=== PATIENT | male | born 1985 | race Caucasian/White ===

== ENCOUNTER 2023-01-16 08:25 | Outpatient (REF) | payer BC, SELFPAY ==
[2023-01-16 11:38] LABS: Appearance Urine Clear; Color Urine Yellow; Glucose Urine UA Negative (Negative); Leukocyte Esterase Urine Negative (Negative); Nitrite Urine Negative (Negative); Specific Gravity - Urine 1.025 (1.005-1.025); UMIC TRIGGER UA YES; Urine Blood Moderate (2+) (Negative); Urine Ketones Trace mg/dL (Negative); Urine Protein Negative (Neg-Trace)
[2023-01-16 11:38] LABS: MANUAL DIFF FLAG NO
[2023-01-16 11:44] LABS: Bacteria Urine None Seen (None Seen); Hyaline Casts Urine 0-2 /LPF (0-2); RBC Urine >20 /HPF (0-2); Squamous Epithelial Cell Urine 0-2 /HPF (0-2); WBC Urine 0-5 /HPF (0-5)
[2023-01-16 11:54] LABS: Basophils Absolute Auto 0.1 X10*3/uL (0.0-0.2); Basophils Percent Auto 1.7 % (0-2); Eosinophils Absolute Auto 0.3 X10*3/uL (0.0-0.4); Hemoglobin 14.8 g/dl (14.0-18.0); Imm Gran Abs Auto 0.01 X10*3/uL (0.00-0.03); Imm Gran Pct Auto 0.2 % (0.0-0.4); Lymphocytes Absolute Auto 1.3 X10*3/uL (1.2-4.9); Lymphocytes Percent Auto 23.3 % (20-40); Mean Corpuscular HGB Conc 33.6 g/dl (31.0-36.0); Mean Corpuscular Hemoglobin 30.3 pg (27.0-33.0); Mean Corpuscular Volume 90.2 fL (80.0-98.0); Mean Platelet Volume 10.9 fL (9.4-12.4); Monocytes Absolute Auto 0.5 X10*3/uL (0.1-1.2); Monocytes Percent Auto 9.2 % (2-11); Neutrophils Absolute Auto 3.3 x10*3/uL (2.0-8.3); Neutrophils Percent Auto 60.6 % (45-73); Platelet Count 253 X10*3/uL (160-400); Red Blood Count 4.88 X10*6/uL (4.60-5.80); Red Cell Distribution Width 13.2 % (11.0-16.0); White Blood Count 5.4 X10*3/uL (4.8-10.8)
[2023-01-16 12:35] LABS: Alanine Aminotransferase 15 U/L (0-40); Albumin Level 4.1 g/dL (3.5-5.0); Alkaline Phosphatase 61 U/L (39-117); Anion Gap 8 (12-20); Aspartate Amino Transferase 17 U/L (5-37); Bilirubin Total 0.2 mg/dL (0.0-1.0); Blood Urea Nitrogen 16 mg/dL (9-16); Calcium 8.8 mg/dL (8.4-10.2); Carbon Dioxide 30 mmol/L (22-29); Chloride 107 mmol/L (96-108); Cholesterol 162 mg/dL; Estimated Glomerular Filt Rate > 60; Glucose Fasting 100 mg/dL (60-99); HDL Cholesterol 42 mg/dL; LDL Cholesterol Calculated 104 mg/dl; Potassium 4.3 mmol/L (3.3-5.1); Sodium 141 mmol/L (135-145); Thyroid Stimulating Hormone 6.62 uIU/mL (0.32-4.0); Total Protein 6.4 g/dL (6.5-8.0); Triglycerides 83 mg/dL
[2023-01-16 12:39] LABS: Creatinine Urine 244.99 mg/dL; Microalbum/Creatinine Ratio Ur 4.8 ug/mg cr
[2023-01-19 02:14] LABS: Triiodothyronine T3 Total 102 ng/dL (76-181)
== END 2023-01-16 08:26 | disposition home or self-care (01) ==
LOC: HO.HMGCLDS 08:25
PROVIDERS: PCP Family Medicine; Visit Provider Family Medicine
DX: Z00.00 Encounter for general adult medical examination without abnormal findings (principal); E03.9 Hypothyroidism, unspecified; I10 Essential (primary) hypertension
CPT/HCPCS: 36415; 80053; 80061; 81001; 82043; 84439; 84443; 84480; 85025

== ENCOUNTER 2023-07-08 08:40 | Outpatient (REF) | payer BC, SELFPAY ==
[2023-07-09 20:34] LABS: Triiodothyronine T3 Total 109 ng/dL (76-181)
== END 2023-07-08 08:41 | disposition home or self-care (01) ==
LOC: HO.HMGCLDS 08:40
PROVIDERS: PCP Family Medicine; Visit Provider Family Medicine
DX: R73.01 Impaired fasting glucose (principal); E03.9 Hypothyroidism, unspecified
CPT/HCPCS: 36415; 80048; 81001; 84439; 84443; 84480

== ENCOUNTER 2023-07-24 14:26 | Outpatient (AMB) | payer BC, SELFPAY ==
--- NOTE | 2023-07-24 14:32 | A.OFFPC_ITS ---
Vital Signs 07/24/23 14:33 Height 5 ft 11 in Weight 173 lb 2 oz BMI 24.1 BP 140/92 H Blood Pressure Location Lt brachial Position Sitting Pulse 83 Pulse Source Pulse Oximeter Pulse Oximetry (%) 98 Oxygen Delivery Method Room Air Intake Visit Reasons: F/u f/u hypothyroidism Intake Note: Patient is following up on hypothyroid today. Allergies No Known Allergies [No Known Allergies*] Allergy (Verified 07/24/23 14:35) Tobacco use date assessed: 07/24/23 Dental Screening Dental Screen Date: 07/24/23 Did you have a dental visit in the last 12 months?: No Did you have a dental problem in the last 6 months where you did not have access to dental care?: No Was dental information given to patient?: Patient declined HPI F/u f/u hypothyroidism HPI Details 37 y/o male presents to f/u hypothyroidi . Labs were drawn 07/08/23. Reviewed labs with pt. TSH level 2.84. Free %4 0.94. Total T3 109. Hematuria. Elevated BP reading at 140/92. 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 Devante Timmons, Clarisa Perez, Yousif Mccurdy and colleagues, with an educational adolfo from [employer]. Review of Systems Const Denies chills, Denies fatigue, Denies fever(s), Denies headache(s) and Denies weakness ENT Denies dizziness and Denies headache(s) Card Denies dyspnea Resp Denies cough, Denies dyspnea, Denies wheezing and Denies other (shortness of breath) Musc Denies numbness and Denies tingling Neuro Denies dizziness, Denies headache(s), Denies numbness, Denies tingling and Denies weakness Psych Denies anxiety and Denies depression Endo Denies fatigue Aller/Immun Denies wheezing Physical exam (Primary Care) Vital Signs: Last Vital Signs Pulse 83 07/24/23 14:33 BP 140/92 H 07/24/23 14:33 Pulse Ox 98 07/24/23 14:33 Oxygen Delivery Method Room Air 07/24/23 14:33 BMI result Body Mass Index 24.1 Tobacco/Smoking Status: Tobacco use Status Tobacco use date assessed 07/24/23 07/24/23 14:42 Patient Tobacco Use Status Never used Tobacco 07/24/23 14:42 e-Cigarette/Vaping Use Never Used 07/24/23 14:42 Thrive Assessment: Date of Thrive Assessment Date Thrive assessed 09/02/22 07/24/23 14:42 Const General: well developed; No acute distress Nutritional Appearance: well nourished Orientation/consciousness: patient oriented x3 HENMT Head: Yes normocephalic and Yes atraumatic Eyes General: appearance normal, both eyes and all related structures Pupils: Equal, round and reactive pupils present EOM: EOMs intact bilaterally Resp Effort & Inspection: normal respiratory effort Neuro General: patient oriented x3 and gait normal Cranial nerves: Yes Equal, round and reactive pupils present Psych Affect: normal affect Assessment and Plan Assessment & Plan (1) Hypothyroid: Code(s): E03.9 - Hypothyroidism, unspecified Qualifiers: Hypothyroidism type: unspecified Qualified Code(s): E03.9 - Hypothyroidism, unspecified Plan: Thyroid?hormone?levels?are?all?within?normal?limit Continue?levothyroxine?125?mcg?daily (2) Elevated blood pressure reading: Code(s): R03.0 - Elevated blood-pressure reading, without diagnosis of hypertension Plan: Elevated?blood?pressure?reading?today.??Patient ?notes?that?he?is?somewhat?stressed Prior?readings?have?been?within?normal?limits We?can?recheck?this?at?his?next?visit?in?a?month (3) Elevated fasting glucose: Code(s): R73.01 - Impaired fasting glucose Plan: Prior?elevated?fasting?blood?sugar?and?patient?was?not?sure?he?had?had?a?proper? fast Blood?sugar?is?within?normal?limits?at?most?recent?check (4) Hematuria: Code(s): R31.9 - Hematuria, unspecified Plan: Hematuria?seen?on?past?2?urinalysis?tests Will?check?an?ultrasound?and?repeat?urinalysis?with?microscopy.??Will?check?cyto logy May?need?referral?to?Nephrology?or?Urology Orders: Orders UA w Microscopic Today R31.9 - Hematuria, unspecified Urine Cytology Today R31.9 - Hematuria, unspecified US renal BI Today R31.9 - Hematuria, unspecified Coding Level of Care Code Est Pt Level 4 (93609) Diagnoses Hypothyroidism, unspecified type E03.9 Hypothyroidism type: unspecified Elevated blood pressure reading R03.0 Elevated fasting glucose R73.01 Hematuria R31.9
[2023-07-24 14:33] VITALS: BP 140/92; PULSE 83; O2SAT 98; BMI 24.1
== END 2023-07-24 16:19 | disposition home or self-care (01) ==
PROVIDERS: PCP Family Medicine; Visit Provider Family Medicine
DX: E03.9 Hypothyroidism, unspecified (principal); R03.0 Elevated blood-pressure reading, without diagnosis of hypertension; R73.01 Impaired fasting glucose; R31.9 Hematuria, unspecified
CPT/HCPCS: 99214

== ENCOUNTER 2025-01-27 10:50 | Outpatient (AMB) | payer BC, SELFPAY ==
--- NOTE | 2025-01-27 11:02 | A.OFFPC_ITS ---
Vital Signs 01/27/25 11:04 Height 5 ft 11 in Weight 170 lb 2 oz BMI 23.7 BP 120/70 Blood Pressure Location Rt brachial Position Sitting Respiration 14 Pulse 53 Pulse Source Pulse Oximeter Temp 98.2 F Temp Source Oral Pulse Oximetry (%) 98 Oxygen Delivery Method Room Air Intake Visit Reasons: prescription Intake Note: patient is here for a follow up visit for levothyroxine Library Aide Required: No Allergies No Known Allergies [No Known Allergies*] Allergy (Verified 01/27/25 11:03) Tobacco use date assessed: 07/24/23 Dental Screening Dental Screen Date: 07/24/23 HPI prescription HPI Details 39 y/[facility]. He is on levothyroxine 125 mcg. 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 1. Little interest or pleasure in doing things: not at all 2. Feeling down, depressed, or hopeless: not at all 3. Trouble falling or staying asleep, or sleeping too much: not at all 4. Feeling tired or having little energy: not at all 5. Poor appetite or overeating: not at all 6. Feeling bad about yourself - or that you are a failure or have let yourself or your family down: not at all 7. Trouble concentrating on things, such as reading the newspaper or watching television: not at all 8. Moving or speaking so slowly that other people could have noticed. Or the opposite - being so fidgety or restless that you have been moving around a lot more than usual: not at all 9. Thoughts that you would be better off or of hurting yourself in some way: not at all Total score: 0 Depression Screening Interpretation: Negative Depression Screening Done: Yes 32234 - PHQ-9 Billing: Yes Source: Developed by Drs. Devante Timmons, Yousif Smith and colleagues, with an educational adolfo from [employer]. Thrive Questionnaire Date Thrive assessed: 09/02/22 I am a: Patient What is your living situation today?: I have a steady place to live Within the past 12 months, did the food you bought not last and you didn't have the money to get more?: Never true Within the past 12 months, did you worry whether your food would run out before you got money to buy more?: Never true Do you have trouble paying for medicines?: No Do you have trouble getting transportation to medical appointments?: No Do you have trouble paying your heating and electricity bill?: No Do you have trouble taking care of your child, family member or friend?: No Do you have trouble with day-to-day activities such as bathing, preparing meals, shopping, managing finances, etc.?: No Are you currently unemployed and looking for a job?: No Are you interested in more education?: No Please select the resources that you would like help with: None Currently or been in a relationship where the following occur: No concerns reported THRIVE Score: 0 AUDIT C Alcohol Use Questionnaire (AUDIT-C) 1. How often do you have a drink containing alcohol?: Never Total Score: 0 SHAINA-7 AMB Questionnaire SHAINA-7 Date SHAINA - 7 assessed: 01/27/25 Feeling nervous, anxious, or on edge: 0 = Not at all Not being able to stop or control worryin = Not at all Worrying too much about different things: 0 = Not at all Trouble relaxin = Not at all Being so restless that it is hard to sit still: 0 = Not at all Becoming easily annoyed or irritable: 0 = Not at all Feeling afraid as if something awful might happen: 0 = Not at all Total SHAINA-7 score (0-4 normal; 5-9 mild; 10-14 moderate; 15-21 severe): 0 Source: Developed by Drs. Devante Timmons, Yousif Smith and colleagues, with an educational adolfo from [employer]. SHAINA-7 Assessment Billing SHAINA-7 Assessment Tool: SHAINA-7 Assessment 70349 Review of Systems Const Denies chills, Denies fatigue, Denies fever(s), Denies headache(s) and Denies weakness ENT Denies dizziness and Denies headache(s) Card Denies chest pain, Denies lightheadedness, Denies dyspnea and Denies other (Palpitations) Resp Denies cough, Denies dyspnea, Denies wheezing and Denies other ( shortness of breath) Musc Denies numbness and Denies tingling Neuro Denies dizziness, Denies headache(s), Denies numbness, Denies tingling, Denies paresthesias and Denies weakness Psych Denies anxiety and Denies depression Endo Denies fatigue Aller/Immun Denies wheezing Physical exam (Primary Care) Vital Signs: Last Vital Signs Temp 98.2 F 01/27/25 11:04 Pulse 53 01/27/25 11:04 Resp 14 01/27/25 11:04 BP 120/70 01/27/25 11:04 Pulse Ox 98 01/27/25 11:04 Oxygen Delivery Method Room Air 01/27/25 11:04 BMI result Body Mass Index 23.7 Tobacco/Smoking Status: Tobacco use Status Tobacco use date assessed 07/24/23 01/27/25 11:06 Patient Tobacco Use Status Never used Tobacco 01/27/25 11:06 e-Cigarette/Vaping Use Never Used 01/27/25 11:06 PHQ-9: PHQ-9 Score PHQ-9: Total score 0 01/27/25 11:06 Depression Screening Interpretation: Negative Thrive Assessment: Date of Thrive Assessment Date Thrive assessed 09/02/22 01/27/25 11:06 Currently or been in a relationship where the following occur: No concerns reported Const General: no acute distress and well developed Nutritional Appearance: well nourished Orientation/consciousness: patient oriented x3 [facility] Head: Yes normocephalic and Yes atraumatic Eyes General: appearance normal, both eyes and all related structures Pupils: Equal, round and reactive pupils present EOM: EOMs intact bilaterally Resp Effort & Inspection: normal respiratory effort Auscultation: clear to auscultation bilaterally Cardio Rate: regular rate Rhythm: regular rhythm Heart sounds: S1 normal heart sound present, S2 normal heart sound present, no gallops, no murmurs and no rubs Neuro General: patient oriented x3 and gait normal Cranial nerves: Yes Equal, round and reactive pupils present Psych Affect: normal affect Coding Level of Care Code Est Pt Level 3 (36927) Diagnoses Hypothyroidism, unspecified type E03.9 Hypothyroidism type: unspecified Additional Codes SHAINA-7 Assessment Billing - SHAINA-7 Assessment Tool: SHAINA-7 Assessment 59565 ([id number]) PHQ-9 - 35645 - PHQ-9 Billing: Yes ([id number]) Assessment & Plan Assessment & Plan (1) Hypothyroid: Code(s): E03.9 - Hypothyroidism, unspecified Category: Medical Qualifiers: Hypothyroidism type: unspecified Qualified Code(s): E03.9 - Hypothyroidism, unspecified Plan: Patient?has?been?taking?his?medications?as?prescribed. Has?not?had?recent?follow- up.??He?will?get?his?labs?drawn?to?check?thyroid?hormone?levels. Will?call?radiation?if?adjustment?is?needed. Orders: Orders Free T4 (Free Thyroxine) Today E03.9 - Hypothyroidism, unspecified Comprehensive Met. Panel Today E03.9 - Hypothyroidism, unspecified Triiodothyronine T3 Total Today E03.9 - Hypothyroidism, unspecified TSH reflex Free T4 Today E03.9 - Hypothyroidism, unspecified, Z00.00 - Encounter for general adult medical examination without abnormal findings
[2025-01-27 11:04] VITALS: BP 120/70; PULSE 53; RESP 14; TEMP 36.8; O2SAT 98; BMI 23.7
== END 2025-01-27 11:22 | disposition home or self-care (01) ==
LOC: HO.HMCFM 10:50
PROVIDERS: PCP Family Medicine; Visit Provider Family Medicine
DX: E03.9 Hypothyroidism, unspecified (principal)

== ENCOUNTER → 2025-01-27 10:50 | Outpatient (BNVA) | payer BC, SELFPAY | PROVIDERS: PCP Family Medicine; Visit Provider Family Medicine | DX: E03.9 Hypothyroidism, unspecified (principal); Z79.899 Other long term (current) drug therapy | CPT/HCPCS: 96127 ==

== ENCOUNTER 2025-01-27 11:55 | Outpatient (REF) | payer BC, SELFPAY ==
[2025-01-27 14:56] LABS: Alanine Aminotransferase 14 U/L (0-40); Albumin Level 4.3 g/dL (3.5-5.0); Alkaline Phosphatase 64 U/L (39-117); Anion Gap 12 (12-20); Aspartate Amino Transferase 26 U/L (5-37); Bilirubin Total 0.6 mg/dL (0.0-1.0); Blood Urea Nitrogen 14 mg/dL (9-16); Calcium 9.3 mg/dL (8.4-10.2); Carbon Dioxide 29 mmol/L (22-29); Chloride 106 mmol/L (96-108); Estimated Glomerular Filt Rate > 60; Glucose Random 95 mg/dL (60-115); Potassium 4.7 mmol/L (3.3-5.1); Sodium 142 mmol/L (135-145)
[2025-01-27 15:03] LABS: Free T4 (Free Thyroxine) 1.05 ng/dL (0.71-1.85); TSH reflex Free T4 4.65 uIU/mL (0.32-4.0)
[2025-01-28 05:44] LABS: Triiodothyronine T3 Total 83 ng/dL (76-181)
== END 2025-01-27 11:56 | disposition home or self-care (01) ==
LOC: HO.WFDLDS 11:55
PROVIDERS: Visit Provider Family Medicine
DX: Z00.00 Encounter for general adult medical examination without abnormal findings (principal); E03.9 Hypothyroidism, unspecified
CPT/HCPCS: 36415; 80053; 84439; 84443; 84480

== ENCOUNTER 2025-08-04 08:26 | Outpatient (AMB) | payer BC, SELFPAY ==
--- NOTE | 2025-08-04 08:28 | A.OFFPC_ITS ---
Vital Signs 08/04/25 08:35 Height 5 ft 11 in Weight 171 lb 6 oz BMI 23.9 BP 128/78 Blood Pressure Location Rt brachial Position Sitting Respiration 16 Pulse 58 Pulse Source Pulse Oximeter Temp 98.2 F Temp Source Oral Pulse Oximetry (%) 99 Oxygen Delivery Method Room Air Intake Visit Reasons: f/u hypothyroid Intake Note: CPE, F/U hypothyroidism and lower left back pain. pt has iced and has taken OTC meds to help with back pain. [employer] Required: No Allergies No Known Allergies (No Known Allergies*) Allergy (Verified 08/04/25 08:35) Medication List - Last Reconciled 08/04/25 by Mode Gunderson MD fexofenadine (Jil Allergy) 60 mg PO ONCE levothyroxine 125 mcg PO DAILY Tobacco use date assessed: 07/24/23 Dental Screening Dental Screen Date: 07/24/23 HPI f/u hypothyroid HPI Details Patient presents for CPE and has complaint of left lower back pain. Patient has strained his back last Thursday. He has been using ice and some ibuprofen. Reviewed labs: TSH was slightly elevated though T4 and T3 were within normal range. He is taking levothyroxine as prescribed. Otherwise patient feels well. No other complaints. 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 Current occupational exposures/hazards: No Cognitive needs: No Hearing needs: No Vision needs: Yes (Patient wears prescription glasses.) Questionnaire Thrive Questionnaire Date Thrive assessed: 01/27/25 I am a: Patient What is your living situation today?: I have a steady place to live Within the past 12 months, did the food you bought not last and you didn't have the money to get more?: Never true Within the past 12 months, did you worry whether your food would run out before you got money to buy more?: Never true Do you have trouble paying for medicines?: No Do you have trouble getting transportation to medical appointments?: No Do you have trouble paying your heating and electricity bill?: No Do you have trouble taking care of your child, family member or friend?: No Do you have trouble with day-to-day activities such as bathing, preparing meals, shopping, managing finances, etc.?: No Are you currently unemployed and looking for a job?: No Are you interested in more education?: No Please select the resources that you would like help with: None Currently or been in a relationship where the following occur: No concerns reported THRIVE Score: 0 AUDIT C Alcohol Use Questionnaire (AUDIT-C) 3. How often do you have six or more drinks on one occasion?: Never Total Score: 0 SHAINA-7 AMB Questionnaire SHAINA-7 Date SHAINA - 7 assessed: 01/27/25 Source: Developed by Drs. Devante Timmons, Clarisa Perez, Yousif Mccurdy and colleagues, with an educational adolfo from [employer]. Review of Systems Const Denies chills, Denies fatigue, Denies fever(s), Denies headache(s) and Denies weakness Eyes Denies change in vision ENT Denies dizziness, Denies headache(s), Denies hearing loss, Denies nasal congestion, Denies sinus pain, Denies sinus pressure and Denies sore throat Card Denies chest pain, Denies lightheadedness, Denies dyspnea and Denies other (palpitations) Resp Denies cough, Denies dyspnea and Denies wheezing GI Denies abdominal pain, Denies melena, Denies hematochezia, Denies change in bowel habits, Denies dyspepsia and Denies nausea Denies hematuria and Denies dysuria Musc Details: Left low back pain since last Thursday Denies abnormal gait, Denies myalgias, Denies arthralgias, Denies numbness and Denies tingling Skin/Breast Denies rash, Denies unusual bruising and Denies wounds Neuro Denies abnormal gait, Denies dizziness, Denies headache(s), Denies memory loss, Denies numbness, Denies Sensory deficit (Neuro), Denies tingling and Denies weakness Psych Denies anxiety, Denies depression and Denies memory loss Endo Denies cold intolerance, Denies fatigue, Denies heat intolerance, Denies polydipsia and Denies polyuria Mohinder/Lymph Denies easy bleeding and Denies easy bruising Aller/Immun Denies wheezing Physical exam (Primary Care) Vital Signs: Last Vital Signs Temp 98.2 F 08/04/25 08:35 Pulse 58 08/04/25 08:35 Resp 16 08/04/25 08:35 BP 128/78 08/04/25 08:35 Pulse Ox 99 08/04/25 08:35 Oxygen Delivery Method Room Air 08/04/25 08:35 BMI result Body Mass Index 23.9 Tobacco/Smoking Status: Tobacco use Status Tobacco use date assessed 07/24/23 08/04/25 08:29 Patient Tobacco Use Status Never used Tobacco 08/04/25 08:29 e-Cigarette/Vaping Use Never Used 08/04/25 08:29 Thrive Assessment: Date of Thrive Assessment Date Thrive assessed 01/27/25 08/04/25 08:29 Currently or been in a relationship where the following occur: No concerns reported Const General: no acute distress, well developed, alert and awake Nutritional Appearance: well nourished Orientation/consciousness: patient oriented x3 HENMT Head: Yes normocephalic and Yes atraumatic Ears: hearing grossly normal bilaterally and TM's normal bilaterally General nose exam: Normal external nose present and Normal nares present Mouth: Normal oral and palatal mucosa present and moist mucous membranes Teeth and gingiva: dentition normal Throat: Yes posterior oropharynx normal Eyes Pupils: Equal, round and reactive pupils present and Pupil accommodation reflex normal EOM: EOMs intact bilaterally Neck Neck: Yes normal visual inspection, Yes no lymphadenopathy and Yes trachea midline Thyroid: Thyroid normal Carotids: no bruits Lymphatic: no lymphadenopathy noted Chest Chest palpation & inspection: normal inspection of the chest Resp Effort & Inspection: normal respiratory effort Auscultation: clear to auscultation bilaterally Cardio Rate: regular rate Rhythm: regular rhythm Heart sounds: S1 normal heart sound present, S2 normal heart sound present, no gallops, no murmurs and no rubs Bruits: no abdominal aortic bruits and no carotid bruits GI Palpation (GI): No Abdominal aortic bruit present, Soft to palpation, nontender, No hepatosplenomegaly present and No Rebound tenderness present Auscultation: normal bowel sounds General: Yes no CVA tenderness (Tenderness at Left lower back paraspinous muscles and left buttock) Back/Spine/Pelvis Back: no CVA tenderness (Tenderness at Left lower back paraspinous muscles and left buttock) Cervical Spine: cervical ROM normal and No Cervical spine tenderness Thoracic/Lumbar Spine: thoraco-lumbar ROM normal, No pain with thoraco-lumbar ROM, No thoracic spinal tenderness and No lumbar spinal tenderness Skin Lesions: no lesions Rashes: no rashes Trauma: no lacerations or abrasions Wounds: no wounds Nails: normal Neuro General: patient oriented x3, gait normal and CN's II-XI intact bilaterally Cranial nerves: Yes Equal, round and reactive pupils present Cognition (Neuro): normal cognition Gait exam (Neuro): Normal gait present Motor exam (neuro): 5/5 motor strength present throughout Sensory Exam: No Sensory deficit (Neuro) Deep tendon reflexes (DTR's): Right patellar reflex intensity grade: 2+ and Left patellar reflex intensity grade: 2+ Extrem General: Yes normal to inspection and No edema Psych Appearance: grossly normal Affect: normal affect Attitude: cooperative Thought process: Normal thought process present Coding Level of Care Code Est Pt Level 3 (42599) Est Pt Prev Care 18-39y(31654) Diagnoses Adult general medical exam Z00.00 Low back pain M54.50 Hypothyroidism, unspecified type E03.9 Hypothyroidism type: unspecified Assessment & Plan Assessment & Plan (1) Adult general medical exam: Code(s): Z00.00 - Encounter for general adult medical examination without abnormal findings Category: Medical Plan: 39-year-old male presents for complete physical exam Encouraged healthy diet with active lifestyle and plenty of exercise (2) Low back pain: Code(s): M54.50 - Low back pain, unspecified Category: Medical Plan: Left low back muscle strain Will send a script for meloxicam and also cyclobenzaprine. Relative rest; he has been out since Thursday and I will keep him out today as well. He can go back to work on Thursday if he is feeling. Can use ice or heat He has a physical therapist that will help him with exercises Call or return to office if worsening or not improving (3) Hypothyroid: Code(s): E03.9 - Hypothyroidism, unspecified Category: Medical Qualifiers: Hypothyroidism type: unspecified Qualified Code(s): E03.9 - Hypothyroidism, unspecified Plan: Patient taking levothyroxine as prescribed Had mildly elevated TSH Repeating this and we will follow-up at his next visit. If TSH is still elevated, will adjust his medication. Orders: Orders Thyroid Stimulating Hormone Today E03.9 - Hypothyroidism, unspecified Triiodothyronine T3 Total Today E03.9 - Hypothyroidism, unspecified Basic Metabolic Panel Today E03.9 - Hypothyroidism, unspecified, Z00.00 - Encounter for general adult medical examination without abnormal findings Free T4 (Free Thyroxine) Today E03.9 - Hypothyroidism, unspecified Medications: New meloxicam 15 mg PO DAILY 30 tabs 2RF 30 days cyclobenzaprine 10 mg PO BID PRN 20 tabs 0RF muscle spasm 10 days Changed From levothyroxine 125 mcg PO DAILY 30 tabs 0RF To levothyroxine 125 mcg PO DAILY 90 tabs 2RF 90 days
[2025-08-04 08:35] VITALS: BP 128/78; PULSE 58; RESP 16; TEMP 36.8; O2SAT 99; BMI 23.9
--- OUTSIDE RECORDS SUMMARY | 2025-08-04 08:56 | XMS_ITS | Clinical Summary ---
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 Not on marleny e 01/23/2023 Are you concerned about learning? Not on file 01/23/2023 No 01/23/2023 No 01/23/2023 Digital Access Answer Date Recorded No 02/22/2023 No 02/22/2023 Reliable internet access at home? Not on file 02/22/2023 Device with a working camera? Not on file Sex and Gender Information Value Date Recorded Sex Assigned at Not on file Legal Sex Male 4:15 PM EST Gender Identity Not on file Sexual Orientation Not on file Last Filed Vital Signs Vital Sign Reading Time Taken Comments Blood Pressure - - Pulse - - Temperature - - Respiratory Rate - - Oxygen Saturation - - Inhaled Oxygen Concentration - - Weight 83.5 kg (184 lb) 04/01/2017 1:07 PM EDT Height 180.3 cm (5' 11 ) 04/01/2017 1:07 PM EDT Body Mass Index 25.66 04/01/2017 1:07 PM EDT Plan of Treatment Upcoming Encounters Date Type Department Care Team ([facility] st Contact Info) Description 02/12/2026 3:00 PM EDT Office Visit [facility] [address] [place] [address] Sarah Rene MD [address] [place] [address], [address] [place] [address] [email or web address] Health Maintenance Due Date Last Done Comments LIPID PANEL 1985 DEPRESSION SCREENING 1997 SMOKING Hx and SMOKELESS TOBACCO SCREENING 1998 HEPATITIS C SCREENING 12/02/2003 HIV ONE-TIME SCREENING (18-6 5 YEARS) 12/02/2003 INFLUENZA VACCINE (#1) 2025 COVID-19 VACCINE (2024-2 6 season) 2025 02/20/2021, 01/27/2021 Adult Td,Tdap Booster 03/09/2027 03/09/2017 HEPATITIS A VACCINES Aged Out No long er eligible based on patient's age to complete this topic HIB VACCINES Aged Out No longer eligi ble based on patient's age to complete this topic MENINGOCOCCAL VACCINES (ACWY) Aged Out No longer eligible based on patient's age to complete this topic MENINGOCOCCAL VACCINES (B) Aged Out N o longer eligible based on patient's age to complete this topic PNEUMOCOCCAL VACCINES (0-49 years) Aged Out No longer eligible b ased on patient's age to complete this topic Medical Devices Not on file Insurance [facility] OUT STATE PPO BLUE [place]OSS OUT OF STATE PPO BLUE [place]OSS OUT OF STATE PPO BLUE [place]OSS OUT OF STATE PPO BLUE CROSS OUT OF STATE PPO 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 It is not the complete legal health record.[facility]
== END 2025-08-04 08:57 | disposition home or self-care (01) ==
LOC: HO.HMCFM 08:26
PROVIDERS: PCP Family Medicine; Visit Provider Family Medicine
DX: Z00.00 Encounter for general adult medical examination without abnormal findings (principal); M54.50 Low back pain, unspecified; E03.9 Hypothyroidism, unspecified